=== PATIENT | male | born 1960 | race Two or more races ===

== ENCOUNTER 2018-04-26 15:13 | Emergency (ER) | payer OTHER ==
[~2018-04-26] VITALS: Ht 172.7 cm; Wt 86.2 kg
[2018-04-26] MEDS ORDERED: ASPirin 81 mg TAB PO ONE (16:00)
[2018-04-26 16:39] LABS: Basophils # (auto) 0 uL; Basophils % (auto) 0.4 % (0.0-2.0); Eosinophils # (auto) 0.2 uL; Hematocrit 48.2 % (41.0-53.0); Hemoglobin 16.4 g/dL (13.5-17.5); Lymphocytes # (auto) 1.6 uL; Lymphocytes % (auto) 28.4 % (10.0-50.0); Mean Corpuscular Hemoglobin 31.1 pg (28.0-32.0); Mean Corpuscular Volume 91.4 fL (80.0-100.0); Monocytes # (auto) 0.7 uL; Monocytes % (auto) 11.7 % (0.0-12.0); Neutrophils # (auto) 3.2 uL; Neutrophils % (auto) 56.5 % (37.0-80.0); Nucleated Red Blood Cells % 0.3 %; Platelet Count (auto) 234 10^3/uL (140-450); Red Blood Cells 5.28 10^6/uL (4.5-5.90); Red Cell Distribution Width 12.9 % (11.8-14.3); White Blood Cell 5.7 10^3/uL (4.4-10.8)
[2018-04-26 16:49] LABS: INR 1.08 (0.9-1.15); Partial Thromboplastin Time 31.5 sec (23.78-33.04); Prothrombin Time 11.5 sec (9.27-12.13)
[2018-04-26 16:57] LABS: Albumin 3.9 g/dL (3.4-5.0); Calcium 8.7 mg/dL (8.5-10.1); Magnesium 2.5 mg/dL (1.6-2.6); Potassium 4.1 mmol/L (3.5-5.1)
[2018-04-26 17:02] LABS: Bilirubin, Total 0.5 mg/dL (0.2-1.0); Total Protein 8.4 g/dL (6.4-8.2)
[2018-04-26] MEDS ORDERED: ONDANSETRON HCL 4 MG/2 ML VIAL IV ONE (18:30)
[2018-04-26] MEDS ORDERED: MORPHINE SULFATE 4 MG/ML SYR/VIAL IV ONE (18:30)
[2018-04-27] MEDS ORDERED: ENOXAPARIN SOD 100 MG/1 ML SYRINGE SC ONE
[2018-04-27 01:17] VITALS: BP 119/89
== END 2018-04-27 01:30 | disposition short-term general hospital (02) ==
LOC: ER 15:13
DX: I24.9 Acute ischemic heart disease, unspecified (principal); R79.89 Other specified abnormal findings of blood chemistry; I10 Essential (primary) hypertension; Z86.73 Personal history of transient ischemic attack (TIA), and cerebral infarction without residual deficits; Z98.61 Coronary angioplasty status
CPT/HCPCS: 36415; 71045; 76705; 80053; 83735; 84484; 85025; 85610; 85730; 93005; 94761; 96372; 96374; 96375; 99285; J1650; J2270; J2405